=== PATIENT | male | born 1965 | race Caucasian/White ===

== ENCOUNTER 2018-11-12 21:43 | Emergency (ER) | payer SELFPAY ==
[~2018-11-12] VITALS: Ht 167.6 cm; Wt 73.0 kg
[2018-11-12 22:59] VITALS: BP 131/75
[2018-11-12] MEDS ORDERED: FLUORESCEIN SODIUM 1MG/STRIP OP ONE (23:15)
[2018-11-12] MEDS ORDERED: SODIUM CHLORIDE 0.9% IRRIG SOLUTION 1000ML IR ONE (23:30)
[2018-11-12] MEDS ORDERED: SODIUM CHLORIDE 0.9% 1,000 ML IR NR (23:30)
[2018-11-13] MEDS ORDERED: CIPROFLOXACIN 0.3% OPHTH SOLN 2.5ML LEFTEYE ONE (00:30)
== END 2018-11-13 00:45 | disposition home or self-care (01) ==
LOC: ER 22:42
DX: T15.92XA Foreign body on external eye, part unspecified, left eye, initial encounter (principal); F12.10 Cannabis abuse, uncomplicated; F17.200 Nicotine dependence, unspecified, uncomplicated; X58.XXXA Exposure to other specified factors, initial encounter; Y93.89 Activity, other specified; Y92.89 Other specified places as the place of occurrence of the external cause; Y99.8 Other external cause status
CPT/HCPCS: 99283